=== PATIENT | female | born 1995 | race Caucasian/White ===

== ENCOUNTER 2024-10-28 23:27 | Emergency (ER) | payer BC ==
[2024-10-28 23:47] LABS: #Basophils 0.04 10x3/uL (0.0-0.2); %Basophils 0.6 % (0.0-1.0); %Eosinophils 0.9 % (0.0-10.0); %Lymphocytes 34.4 % (21.0-51.0); %Monocytes 6.8 % (0.0-10.0); %Neutrophils 57.2 % (42.0-75.0); Hematocrit 46.3 % (36.0-47.0); Hemoglobin 15.9 g/dL (12.0-16.0); Mean Corpuscular HGB CONC 34.3 g/dL (32.0-36.0); Mean Corpuscular Hemoglobin 29.3 pg (27.0-31.0); Mean Corpuscular Volume 85.4 fL (78.0-98.0); Mean Platelet Volume 11.9 fL (7.4-10.4); Platelet Count 246 10x3/uL (130-400); RBC Distribution Width 11.7 % (11.5-14.5); Red Blood Cell (RBC) Count 5.42 mill/uL (4.20-5.40)
[2024-10-29 00:05] LABS: ALT (SGPT) 9 U/L (Less than 34); AST (SGOT) 19 U/L (11-34); Albumin 4.7 g/dL (3.1-4.5); Alkaline Phosphatase 59 U/L (40-110); Anion Gap 16 mmol/L (10-20); BUN (Urea Nitrogen) 11 mg/dL (7.0-18.7); Bilirubin, Total 0.3 mg/dL (0.3-1.2); Calc. Creatinine Clearance 0 mL/min (70-130); Calcium 9.9 mg/dL (7.8-10.44); Carbon Dioxide 22 mmol/L (22-29); Chloride 105 mmol/L (98-107); Estimated GFR 124; Globulin 4.4 g/dL (2.4-3.5); Glucose 107 mg/dL (70-105); Potassium 3.2 mmol/L (3.5-5.1); Protein, Total 9.1 g/dL (6.0-8.3); Sodium 140 mmol/L (136-145)
[2024-10-29] MEDS ORDERED: Ketorolac Tromethamine 30 MG (1 mL) VIAL ONE (00:07)
[2024-10-29] MEDS ORDERED: cefTRIAXone (ROCEPHIN) 1 GM VIAL ONE (00:07)
[2024-10-29] MEDS ORDERED: Sodium Chloride 0.9% 100 ML ONE (00:07)
[2024-10-29 00:31] LABS: Bilirubin Negative (Negative); Blood, Urine Negative (Negative); CAUTI Indications for Culture Dysuria,urgency,freq; Clarity Clear (Clear); Glucose, Urine (Dipstick) Normal (Negative); Ketone, Urine Negative (Negative); Leukocyte Negative Leu/uL (Negative); Nitrite Negative (Negative); Protein, Urine (Dipstick) Negative (Neg-Trace); RBC/HPF 0-3 HPF (0-3); Specific Gravity, Urine 1.017 (1.002-1.036); Squamous Epithelial 0-3 HPF (0-3); Urobilinogen Normal mg/dL (Less than 2); WBC/HPF 0-3 HPF (0-3); pH, Urine 6.5 (5.0-9.0)
[2024-10-29 00:45] LABS: Bacteria/HPF 1+ HPF (None Seen); Urine Culture Reflex No No
== END 2024-10-29 04:23 | disposition home or self-care (01) ==
LOC: ERS 23:27
DX: N39.0 Urinary tract infection, site not specified (principal)
CPT/HCPCS: 80053; 81001; 83605; 85025; 87040; 93005; 94760; 96374; 96375; J0696; J1885